=== PATIENT | female | born 1960 | race Caucasian/White ===

== ENCOUNTER 2020-04-19 04:29 | Inpatient (IN) ==
[2020-04-19] MEDS ORDERED: Isovue-370 500 ML BOTTLE IVP ONE (04:38)
[2020-04-19] MEDS ORDERED: Ondansetron 4 MG/2 ML VIAL IVP ONE ×2 (04:59→09:34)
[2020-04-19 05:17] LABS: Bilirubin,Urine Negative (Negative); Blood,Urine Negative (Negative); Clarity,Urine Clear (Clear); Color,Urine Light-Yellow (Yellow); Glucose,Urine (UA) >=1000 mg/dL (Normal); Ketones,Urine Negative (Negative); Leukocyte Esterase,Urine Negative (Negative); Nitrite,Urine Negative (Negative); PH,Urine 5.5 pH Units (5.0-8.0); Protein,Urine Trace mg/dL (Neg-Trace); RBC,Urine 0-3 per hpf (0-3); Specific Gravity,Urine 1.027 (1.010-1.025); Squamous Epithelial Cell,Urine Few per hpf (None-Few); Urobilinogen,Urine Normal (Normal)
[2020-04-19 05:20] LABS: Basophils % 0.4 %; Eosinophils # 0.1 K/mcL (0.0-0.6); Eosinophils % 0.8 %; Hematocrit 43.1 % (35.3-44.9); Hemoglobin 14.2 g/dL (11.5-15.4); Immature Granulocytes % 0.5 % (0-4); Lymphocytes # 0.9 K/mcL (0.6-4.6); Mean Corpuscular HGB Conc 32.9 g/dL (31.6-35.5); Mean Corpuscular Volume 90.9 fL (83.0-100.0); Mean Platelet Volume 12.2 fL (9.4-12.4); Monocytes # 0.2 K/mcL (0.0-1.3); Monocytes % 2.3 %; Neutrophils # 8.9 K/mcL (1.6-8.9); Platelet Count 182 K/mcL (140-400); Red Blood Count 4.74 M/mcL (3.82-4.97); Red Cell Distribution Width 13.5 % (11.5-14.5); White Blood Count 10.2 K/mcL (4.3-11.1)
[2020-04-19 05:39] LABS: Alanine Aminotransferase 19 Units/L (7-52); Albumin 4.1 g/dL (3.5-5.7); Albumin/Globulin Ratio 1.1 (1.1-2.2); Alkaline Phosphatase 80 Units/L (34-104); Aspartate Amino Transferase 15 Units/L (13-39); BUN/Creatinine Ratio 24 (6-26); Bilirubin,Direct 0.2 mg/dL (0.0-0.2); Bilirubin,Indirect 0.7 mg/dL (0.0-1.0); Bilirubin,Total 0.9 mg/dL (0.3-1.0); Blood Urea Nitrogen 19 mg/dL (8-23); Calcium 9.1 mg/dL (8.6-10.3); Carbon Dioxide 27 mEq/L (23-29); Chloride 97 mEq/L (98-107); Globulin 3.9 g/dL (2.4-3.5); Glucose 333 mg/dL (70-105); Lipase 16 Units/L (11-82); Osmolality,Calculated 295 (280-300); Potassium 3.7 mEq/L (3.5-5.1); Sodium 135 mEq/L (136-145); eGFR For African Americans > 60 (> 60); eGFR For Non-African Americans > 60 (> 60)
[2020-04-19] MEDS ORDERED: *HR* FentaNYL (PF) 100 MCG/2 ML VIAL IVP ONE ×2 (06:53→09:33)
[2020-04-19] MEDS ORDERED: Piperacillin/Tazobactam 3.375 GM in 0.9 % Sodium Chloride Mini Bag 100 ML IVPB ONE (07:11)
[2020-04-19] MEDS ORDERED: cefTRIAXone 1,000 MG in Water for inj. (sterile) 10 ML IVP ONE (07:34)
[2020-04-19] MEDS ORDERED: Naloxone 0.4 MG/ML INJ IVP PRN (07:44)
[2020-04-19] MEDS ORDERED: Ondansetron 4 MG/2 ML VIAL IVP PRN (07:44)
[2020-04-19] MEDS: 0.9 % Sodium Chloride 1,000 ML IVC SCH ×2 (08:07→15:25)
[2020-04-19] MEDS ORDERED: 0.9 % Sodium Chloride 500 ML ONE (09:16)
[2020-04-19] MEDS ORDERED: Lidocaine/EPI 1:100k 1% 50 ML VIAL ONE (09:17)
[2020-04-19] MEDS ORDERED: 0.9 % Sodium Chloride 1,000 ML ONE (09:18)
[2020-04-19] MEDS ORDERED: *HR* FentaNYL (PF) 100 MCG/2 ML VIAL ONE (09:38)
[2020-04-19] MEDS ORDERED: Haloperidol Lactate 5 MG/ML VIAL IVP PRN (10:57)
[2020-04-19] MEDS: Ondansetron 4 MG/2 ML VIAL IVP PRN ×2 (11:19→15:25)
[2020-04-19 11:21] LABS: Adenovirus Not Detected (Not Detect); Bordetella Pertussis Not Detected (Not Detect); Chlamydophila pneumoniae Not Detected (Not Detect); Coronavirus 229E Not Detected (Not Detect); Coronavirus HKU1 Not Detected (Not Detect); Coronavirus NL63 Not Detected (Not Detect); Coronavirus OC43 Not Detected (Not Detect); Human Metapneumovirus Not Detected (Not Detect); Human Rhinovirus/Enterovirus Not Detected (Not Detect); Influenza A Subtype 2009 H1 Not Detected (Not Detect); Influenza B Not Detected (Not Detect); Mycoplasma pneumoniae Not Detected (Not Detect); Parainfluenza Virus 1 Not Detected (Not Detect); Parainfluenza Virus 2 Not Detected (Not Detect); Parainfluenza Virus 3 Not Detected (Not Detect); Parainfluenza Virus 4 Not Detected (Not Detect); Respiratory Syncytial Virus Not Detected (Not Detect); SARS-CoV-2 Not Detected (Not Detect)
[2020-04-19 11:35] LABS: INR 1.1; Prothrombin Time 12.8 Seconds (9.4-12.1)
[2020-04-19] MEDS: Ketorolac 30 MG/ML VIAL IVP PRN ×2 (15:25→21:46)
[2020-04-19] MEDS ORDERED: D5% in Water 1,000 ML IVC PRN (20:03)
[2020-04-19] MEDS ORDERED: Dextrose Gel 15 GM/37.5 ML TUBE PO PRN ×2 (20:03)
[2020-04-19] MEDS ORDERED: *HR* Dextrose 50 % in Water (Vial) 50 ML VIAL IVP PRN (20:03)
[2020-04-19] MEDS: Insulin LISPRO 300 UNITS/3 ML VIAL SUBQ SCH (21:01)
[2020-04-20 02:10] LABS: Hematocrit 39.8 % (35.3-44.9); Hemoglobin 12.7 g/dL (11.5-15.4); Mean Corpuscular HGB Conc 31.9 g/dL (31.6-35.5); Mean Corpuscular Hemoglobin 29.1 pg (28.0-33.3); Mean Corpuscular Volume 91.1 fL (83.0-100.0); Mean Platelet Volume 11.9 fL (9.4-12.4); Platelet Count 145 K/mcL (140-400); Red Blood Count 4.37 M/mcL (3.82-4.97); Red Cell Distribution Width 13.6 % (11.5-14.5); White Blood Count 13.6 K/mcL (4.3-11.1)
[2020-04-20 02:31] LABS: BUN/Creatinine Ratio 20 (6-26); Blood Urea Nitrogen 21 mg/dL (8-23); Calcium 8.4 mg/dL (8.6-10.3); Carbon Dioxide 30 mEq/L (23-29); Chloride 99 mEq/L (98-107); Glucose 252 mg/dL (70-105); Osmolality,Calculated 296 (280-300); Potassium 3.7 mEq/L (3.5-5.1); Sodium 137 mEq/L (136-145); eGFR For African Americans > 60 (> 60); eGFR For Non-African Americans 53 (> 60)
[2020-04-20] MEDS ORDERED: *HR* Enoxaparin 40 MG/0.4 ML SYRINGE SQ SCH (06:00)
[2020-04-20] MEDS: cefTRIAXone 1,000 MG in Water for inj. (sterile) 10 ML IVP SCH (08:12)
[2020-04-20] MEDS: Insulin LISPRO 300 UNITS/3 ML VIAL SUBQ SCH ×4 (08:13→21:08)
[2020-04-20] MEDS: Ketorolac 30 MG/ML VIAL IVP PRN ×2 (12:07→19:59)
[2020-04-20] MEDS: 0.9 % Sodium Chloride 1,000 ML IVC SCH (14:05)
[2020-04-20] MEDS ORDERED: Insulin DETEMIR 100 UNIT/ML X5UNITS SUBQ SCH (21:00)
[2020-04-21] MEDS: Ketorolac 30 MG/ML VIAL IVP PRN (02:37)
[2020-04-21 02:52] LABS: Basophils % 0.4 %; Eosinophils # 0.1 K/mcL (0.0-0.6); Eosinophils % 1.2 %; Hemoglobin 12.8 g/dL (11.5-15.4); Immature Granulocytes % 0.2 % (0-4); Lymphocytes # 0.6 K/mcL (0.6-4.6); Lymphocytes % 11.1 %; Mean Corpuscular Hemoglobin 30.2 pg (28.0-33.3); Mean Corpuscular Volume 94.3 fL (83.0-100.0); Mean Platelet Volume 12.2 fL (9.4-12.4); Monocytes # 0.3 K/mcL (0.0-1.3); Monocytes % 5.8 %; Neutrophils # 4.1 K/mcL (1.6-8.9); Platelet Count 112 K/mcL (140-400); Red Blood Count 4.24 M/mcL (3.82-4.97); Red Cell Distribution Width 13.6 % (11.5-14.5); Segmented Neutrophils % 81.3 %
[2020-04-21 03:06] LABS: BUN/Creatinine Ratio 24 (6-26); Blood Urea Nitrogen 22 mg/dL (8-23); Calcium 8.5 mg/dL (8.6-10.3); Carbon Dioxide 29 mEq/L (23-29); Chloride 100 mEq/L (98-107); Glucose 202 mg/dL (70-105); Osmolality,Calculated 291 (280-300); Potassium 3.7 mEq/L (3.5-5.1); Sodium 136 mEq/L (136-145); eGFR For African Americans > 60 (> 60); eGFR For Non-African Americans > 60 (> 60)
[2020-04-21] MEDS: 0.9 % Sodium Chloride 1,000 ML IVC SCH (03:18)
[2020-04-21] MEDS ORDERED: *HR* Enoxaparin 40 MG/0.4 ML SYRINGE SQ SCH (06:00)
[2020-04-21 08:04] VITALS: BP 142/72
[2020-04-21] MEDS: cefTRIAXone 1,000 MG in Water for inj. (sterile) 10 ML IVP SCH (08:16)
[2020-04-21] MEDS: Insulin LISPRO 300 UNITS/3 ML VIAL SUBQ SCH (08:17)
[2020-04-21] MEDS ORDERED: BUPROPION HCL 300 MG PO SCH (09:00)
[2020-04-21] MEDS ORDERED: BuPROPion XL (24 HR) 150 MG TABLET PO SCH (09:00)
[2020-04-21] MEDS ORDERED: Cholecalciferol (D-3) 1,000 UNIT (25MCG) TABLET PO SCH (09:00)
[2020-04-21] MEDS ORDERED: Losartan/HCTZ 50-12.5 TABLET PO SCH (09:00)
== END 2020-04-21 12:03 | disposition home or self-care (01) | DRG 694 ==
LOC: SUATTDRO → 2ANU 04:29 → EMEROOARM 04:29 → 2ANU 09:21 → SUATTDRO 14:05
PROVIDERS: ADMIT Internal Medicine; ATTEND Internal Medicine